=== PATIENT | female | born 1940 | race Caucasian/White ===

== ENCOUNTER 2021-03-08 14:44 | Observation (INO) | payer MEDICARE, OTHER, SELFPAY ==
[2021-03-08 14:53] VITALS: BP 144/75; PULSE 87; RESP 18; TEMP 36.6; O2SAT 98; BMI 29.2
[2021-03-08 15:03] LABS: Glucose Point of Care 88 mg/dL (70-110)
--- NOTE | 2021-03-08 15:09 | CT_ITS ---
WS: [id number] CT HEAD NONCONTRAST HISTORY: Symptoms of Acute Stroke TECHNIQUE: Contiguous axial imaging performed through the brain in 2.5 mm imaging. Bone and soft tiss ue windows. Sagittal and coronal reformats reviewed. All CT scans at [facility] use at least one of these dose optimization techniques: automated exposure control; mA and/or kV adjustment per pa tient size (includes targeted exams where dose is matched to clinical indication); or iterative recon struction. DLP: 817.88 mGy.cm COMPARISON: MRI 04/01/2019 No acute intracranial hemorrhage. Age indeterminate but at least subacute to remote infarct involving the LEFT frontal temporal lobe. This is a moderate size infarct with loss of the normal cortical med ullary junction. I favor this is probably a subacute infarct. Otherwise mild chronic microvascular is chemic disease. Cerebellum is negative. Mild bilateral atrophy. Ventricles: Normal size with no hydrocephalus. Paranasal sinuses: Small mucous retention cyst in the LEFT sphenoid sinus. Mastoid air cells: Well pneumatized. Calvarium and scalp: Skull is intact with no soft tissue edema or swelling. CT/CT head wo con* [id number] IMPRESSION: 1. Suspect subacute moderate size infarct involving the LEFT frontotemporal lo be. No associated hemorrhage. This infarct is new since the MRI of 04/01/2019. 2. Mild atrophy and mild chronic microvascular disease otherwise.
--- NOTE | 2021-03-08 15:09 | ECG_ITS ---
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 Measurements Intervals [place] Rate: 76 P: 34 NM: 140 QRS: 3 QRSD: 83 T: 6 QT: 375 QTc: 423 Interpretive Statements SINUS RHYTHM POSSIBLE LEFT ATRIAL ENLARGEMENT [-0.1mV P-WAVE IN V1/V2] No previous ECG available for comparison Electronically Signed On 03-08-2021 23:57:02 CDT by Violeta Patino M.D. [id number]
--- NOTE | 2021-03-08 15:18 | ED_ITS ---
HPI - General Adult General: Chief complaint: ER Hold Stated complaint: facial drooping, stroke like symptoms Time Seen by Provider: 03/08/21 15:04 History of Present Illness: HPI narrative: CC: +R foot dragging, word-finding difficulty, and R sided lower facial droop HPI: [80]yo patient w/ hx of recent UTI, atrophic vulvovaginitis prsenting to the ED for R sided foot drag, word finding difficulty and R sided lower facial droop since 3 days ago. Since then, symptoms have been persistent and have not improved. Denies any chest pain, SOB, palpitations, /GI complaints. Patient is not on any anticoagulation. Onset: 3 days ago Duration: 3 days Location: home Severity: severe Review of Systems Narrative: Constitutional: No fever, no chills. HEENT: No vision changes CV: No chest pain, no palpitations PULM: No cough, no dyspnea. GI: No abdominal pain, no N/V/D. : No dysuria MSKEL: No edema SKIN: No new rashes, no lesions. NEURO: +R lower facial droop, word finding difficulty HEME: No visible bruises PSYCH: Normal mood PFSH ED PFSH: Family History Mother Cancer colon cancer Hypertension Brother Cancer colon cancer Hypertension Sister Cancer colon cancer Hypertension Father Diabetes Hypertension Denies family history of Ovarian cyst CAD (coronary artery disease) Clotting disorder Hyperlipidemia Chronic kidney disease (CKD) Anesthesia complication Family history of thyroid problem Bleeding disorder Social History Smoking and tobacco status: never smoked Alcohol intake: never Physical Exam Narrative: EXAM NARRATIVE: Head: Atraumatic Eyes: PERRL, conjunctiva without injection ENT: Mucous membrane moist NECK: Supple without lymphadenopathy LUNGS: CTA CV: RRR ABDOMEN: Soft, nontender EXTREMITY: Normal ROM SKIN: No rash or erythema NEURO: NIHSS: 4 1. Level of Consciousness A) LOC Responsiveness 0 B) LOC Questions 0 C) LOC Commands 0 2. Horizontal Eye Movement 0 3. Visual field test 0 4. Facial Palsy 3 5. Motor Arm 0 6. Motor Leg 0 7. Limb Ataxia 0 9. Language 1 10. Speech 0 11. Extinction and Inattention 0 PSYCH: Normal mood and affect. Course Vital Signs: Vital signs: Vital Signs Temperature 97.8 F 03/08/21 14:53 Pulse Rate 78 03/08/21 22:25 Respiratory Rate 18 03/08/21 22:25 Blood Pressure 130/61 03/08/21 22:25 Pulse Oximetry 96 03/08/21 22:25 MDM - General Adult MDM Narrative: Medical decision making narrative: [80]yo patient w/ pMH of UTI and vulvovaginitis BIBA for concerns of transient focal neurological deficit including R lower facial droop, word finding difficulty and mild R foot droop. Presentation concerning for ischemic stroke requiring workup. NIHSS score of 4. Patient is outside of the TPA window. Given History and Exam I have lower suspicion for infectious etiology, neurologic changes secondary to toxicologic ingestion, seizure, complex migraine. Workup include: POC glucose, CBC, BMP, LFTs, Troponin, PT/INR, PTT, Type and Screen. Other Diagnostics: ECG, CT brain EKG without evidence of STEMI or ischemia, fingerstick BS not hypoglycemic, and clinical picture does not suggest other stroke mimic. Plan to workup for TIA Lab Findings and workup [3:29pm] will be admitted to hospital for evaluation of stroke work-up. Disposition: Admission to Neurology with MRI brain/MRA head/neck Lab Data: Labs: Lab Results 03/08/21 03/08/21 03/08/21 14:53 15:47 15:47 WBC 5.7 10^3/uL 10^3/ uL (4.0-10.0) RBC 4.00 10^6/uL L 10 ^6/uL (4.1-5.3) Hgb 11.5 g/dL g/dL (11.5-15.3) Hct 35.9 % L % (37.0-47.0) MCV 89.8 fl fl (81-99) MCH 28.8 pg pg (28.0-34.0) MCHC 32.0 g/dL g/dL (30.0-36.0) RDW 13.2 % % (12.1-15.1) Plt Count 241 10^3/cmm 10^3 /cmm (130-400) MPV 10.6 fL H fL (7.4-10.4) Neut % (Auto) 65.0 % % Lymph % (Auto) 26.0 % % [place] % (Auto) 7.5 % % Eos % (Auto) 0.3 % % Baso % (Auto) 0.5 % % Neut # (Auto) 3.72 10^3/uL 10^3 /uL (1.8-7.7) Lymph # (Auto) 1.5 10^3/uL 10^3/ uL (0.8-4.8) [place] # (Auto) 0.4 10^3/uL 10^3/ uL (0.2-0.9) Eos # (Auto) 0.0 10^3/uL 10^3/ uL (0.0-0.8) Baso # (Auto) 0.0 10^3/uL 10^3/ uL (0.0-0.1) Nucleated RBC % (a uto) 0 % % Nucleated RBCs # 0.0 /100WBC /100W BC PT 14.00 SECONDS SEC ONDS (12.1-14.9) INR 1.05 (0.8-1.2) APTT 39.5 SECONDS H SE CONDS (23.9-36.7) Sodium Potassium Chloride Carbon Dioxide Anion Gap BUN Creatinine GFR Calculation Glucose POC Glucose 88 mg/dL mg/dL (70-110) Calculated Osmolal ity Calcium Total Bilirubin AST ALT Alkaline Phosphata se Total Protein Albumin Globulin 03/08/21 15:47 WBC RBC Hgb Hct MCV MCH MCHC RDW Plt Count MPV Neut % (Auto) Lymph % (Auto) [place] % (Auto) Eos % (Auto) Baso % (Auto) Neut # (Auto) Lymph # (Auto) [place] # (Auto) Eos # (Auto) Baso # (Auto) Nucleated RBC % (a uto) Nucleated RBCs # PT INR APTT Sodium 138 mmol/L mmol/L (136-145) Potassium 4.2 mmol/L mmol/L (3.5-5.1) Chloride 101 mmol/L mmol/L (98-107) Carbon Dioxide 24 mmol/L mmol/L (22-29) Anion Gap 17.2 (5-19) BUN 26 mg/dL H mg/dL (8-23) Creatinine 0.7 mg/dL mg/dL (0.5-0.9) GFR Calculation Not Reportable Glucose 78 mg/dL mg/dL (65-115) POC Glucose Calculated Osmolal ity 290 mOsm/kg mOsm/ kg (285-295) Calcium 9.4 mg/dL mg/dL (8.5-10.5) Total Bilirubin 0.4 mg/dL mg/dL (0.15-1.2) AST 14 U/L U/L (0-32) ALT 9 U/L U/L (0-33) Alkaline Phosphata se 71 IU/L IU/L (35-105) Total Protein 7.1 g/dL g/dL (6.6-8.7) Albumin 4.3 g/dL g/dL (3.5-5.2) Globulin 2.8 g/dL g/dL (1.3-4.6) Imaging Data^: Other Imaging: Radiologist's impression: [employer] [place] [id number] Scan ReportSigned Patient: Ivet Tang IUnit #: [id number]: 3Acct#:[id number]/Sex: 80 / FADM Date: 03/08/21Loc: ERRoom/Bed:Attending Dr: Ordering Provider/Ordering MD: Bony Velez MD Date of Service: 03/08/21 Procedure(s): CT head wo con* [id number] Accession Number(s): [id number] Report Number: [id number] WS: [id number] CT HEAD NONCONTRAST HISTORY: Symptoms of Acute Stroke TECHNIQUE: Contiguous axial imaging performed through the brain in 2.5 mm imaging. Bone and soft tissue windows. Sagittal and coronal reformats reviewed. [facility] use at least one of these dose optimization techniques: automated exposure control; mA and/or kV adjustment per patient size (includes targeted exams where dose is matched to clinical indication); or iterative reconstruction. DLP: 817.88 mGy.cm COMPARISON: MRI 04/01/2019 No acute intracranial hemorrhage. Age indeterminate but at least subacute to remote infarct involving the LEFT frontal temporal lobe. This is a moderate size infarct with loss of the normal cortical medullary junction. I favor this is probably a subacute infarct. Otherwise mild chronic microvascular ischemic disease. Cerebellum is negative. Mild bilateral atrophy. Ventricles: Normal size with no hydrocephalus. Paranasal sinuses: Small mucous retention cyst in the LEFT sphenoid sinus. Mastoid air cells: Well pneumatized. Calvarium and scalp: Skull is intact with no soft tissue edema or swelling. CT/CT head wo con* [id number] IMPRESSION: 1. Suspect subacute moderate size infarct involving the LEFT frontotemporal lobe. No associated hemorrhage. This infarct is new since the MRI of 04/01/2019. 2. Mild atrophy and mild chronic microvascular disease otherwise. Dictated By:Angeline Posada DOSigned By:Angeline Posada DOSigned Date/Time:03/08/21 1536DD/ 1531 Discharge Plan Discharge Patient Disposition: Admitted As Inpatient Admit Provider: Jake Liu Clinical Impression: Facial droop Condition: Stable Coding Level of Care Code ED C Programmer for Ana Maria Russell
[2021-03-08 15:57] LABS: Basophils % 0.5 %; Eosinophils % 0.3 %; Hematocrit 35.9 % (37.0-47.0); Hemoglobin 11.5 g/dL (11.5-15.3); Lymphocytes # 1.5 10^3/uL (0.8-4.8); Mean Corpuscular Hemoglobin 28.8 pg (28.0-34.0); Mean Corpuscular Volume 89.8 fl (81-99); Mean Platelet Volume 10.6 fL (7.4-10.4); Monocytes # 0.4 10^3/uL (0.2-0.9); Monocytes % 7.5 %; Neutrophils # 3.72 10^3/uL (1.8-7.7); Nucleated Red Blood Cells % 0 %; Platelet Count 241 10^3/cmm (130-400); Red Cell Distribution Width 13.2 % (12.1-15.1); White Blood Count 5.7 10^3/uL (4.0-10.0)
[2021-03-08 16:14] LABS: Alanine Aminotransferase 9 U/L (0-33); Albumin Level 4.3 g/dL (3.5-5.2); Alkaline Phosphatase 71 IU/L (35-105); Anion Gap 17.2 (5-19); Aspartate Amino Transferase 14 U/L (0-32); Blood Urea Nitrogen 26 mg/dL (8-23); Calcium 9.4 mg/dL (8.5-10.5); Carbon Dioxide 24 mmol/L (22-29); Chloride 101 mmol/L (98-107); Creatinine Clr Calc Pharmacy 54.0632; Globulin 2.8 g/dL (1.3-4.6); Glucose 78 mg/dL (65-115); Osmolality Calculated 290 mOsm/kg (285-295); Potassium 4.2 mmol/L (3.5-5.1); Sodium 138 mmol/L (136-145); Total Bilirubin 0.4 mg/dL (0.15-1.2); Total Protein 7.1 g/dL (6.6-8.7)
[2021-03-08 16:20] LABS: INR 1.05 (0.8-1.2)
[2021-03-08 16:22] LABS: Partial Thromboplastin Time 39.5 SECONDS (23.9-36.7)
[2021-03-08 17:14] LABS: Urine Appearance Hazy (CLEAR); Urine Color Yellow (Yellow)
[2021-03-08 17:15] LABS: Add Urine Microscopic? YES; Bilirubin Urine Neg (Negative); Blood Urine 2+ (Negative); Glucose Urine UA Norm (Normal); Ketones Urine 1+ (Negative); Leukocyte Esterase Urine 2+ (Negative); Nitrate Urine Negative (Negative); Protein Urine Neg (Negative); RBC Urine 0-4 /hpf (0-2); Specific Gravity, Urine 1.015 (1.005-1.030); Transitional Epi Cells Urine 0-4 /hpf; Urobilinogen Urine Norm (Negative); WBC Urine 25-40 /hpf (0-5); pH Urine 5 (5-7)
--- NOTE | 2021-03-08 17:15 | P.HP_ITS ---
Providers/Chief Complaint Primary Care Provider: Tiki Mcdermott Chief Complaint: facial drooping, stroke like symptoms History of Present Illness Ivet Walker Layman is a 80 year old female with past medical history of hypertension , hypothyroidism , anxiety disorder, came in with chief complaint of, R foot dragging, as well as right-sided facial weakness, difficulty with word finding, symptoms started 3 days back.When I examined the patient, she denied any Worsening of symptoms, according to her she feels fine. Upon arrival in the ER. She was worked up for above-mentioned complaint. CT head without contrast:Suspect subacute moderate size infarct involving the LEFT frontotemporal lobe. EKG: Normal sinus rhythm Pertinent labs: WBC 5.7 H&H 11.5/35.9, platelet count:241, serum sodium 138 serum potassium 4.2 BUN 26 serum creatinine 0.7, AST ALT alk phos normal, Urinalysis dirty Review of Systems Const: Denies: fever(s), chills, body aches, change in appetite or diaphoresis Card: Denies: palpitations, edema, swelling of feet/ankles, dyspnea on exertion, orthopnea or leg pain with exertion Resp: Denies: dyspnea, productive cough, wheezing or pain on inspiration GI: Denies: nausea, vomiting, diarrhea or constipation : Denies: flank pain Musc: Denies: extremity pain or extremity swelling Neuro: Denies: headache(s) or confusion Medications/Allergies Home Medications Medication Instructions Recorded Confirmed Last Taken Type levothyroxine 50 mcg capsule 50 mcg PO DAILY 07/25/20 03/08/21 03/08/21 History lisinopril 10 mg tablet 10 mg PO DAILY 07/25/20 03/08/21 03/08/21 History omeprazole 40 mg capsule,delayed 40 mg PO DAILY 07/25/20 03/08/21 03/08/21 History release Estrace 0.25 g VAGINAL Q7D 03/08/21 03/08/21 Unknown History alprazolam 1 - 2 mg PO TID PRN 03/08/21 03/08/21 03/08/21 History Allergies Allergy/AdvReac Type Severity Reaction Status Date / Time Antihistamines - Alkylamine Allergy amps her up Verified 07/25/20 14:05 PFSH Acute PFSH: Family History Mother Cancer colon cancer Hypertension Brother Cancer colon cancer Hypertension Sister Cancer colon cancer Hypertension Father Diabetes Hypertension Denies family history of Ovarian cyst CAD (coronary artery disease) Clotting disorder Hyperlipidemia Chronic kidney disease (CKD) Anesthesia complication Family history of thyroid problem Bleeding disorder Social History Smoking and tobacco status: never smoked Alcohol intake: never Vitals/I&O/Wt Last Vital Signs Temp 97.8 F 03/08/21 14:53 Pulse 87 03/08/21 14:53 Resp 18 03/08/21 14:53 BP 144/75 03/08/21 14:53 Pulse Ox 98 03/08/21 14:53 Weight last 48 hrs Weight 72.575 kg Physical Exam Const: COMMON NORMALS: patient oriented x3 HENMT: COMMON NORMALS: normocephalic and atraumatic HEAD & SCALP: normocephalic and atraumatic EXTERNAL EAR: Yes external ears normal Resp: COMMON NORMALS: clear to auscultation bilaterally AUSCULTATION: clear to auscultation bilaterally Cardio: COMMON NORMALS: regular rate, regular rhythm, S1 normal heart sound present, S2 normal heart sound present, No gallops present (Cardio), No murmurs present (Cardio), No rub (Cardio) and Peripheral pulses 2+ throughout RATE: regular rate RHYTHM: regular rhythm HEART SOUNDS: S1 normal heart sound pr esent and S2 normal heart sound present PERIPHERAL PULSES: Peripheral pulses 2+ throughout GI: COMMON NORMALS: Normal to inspection, nondistended, normoactive bowel sounds present, Soft to palpation, non-tender, No hepatosplenomegaly present and no masses AUSCULTATION: Yes normoactive bowel sounds PALPATION: Yes Soft to palpation and Yes No hepatosplenomegaly present RECTAL EXAM: deferred Extremity: COMMON NORMALS: no clubbing, cyanosis or edema and no pedal edema Neuro: COMMON NORMALS: patient oriented x3 OTHER: Right-sided facial droop present, motor strength: 5 out of 5 in both upper and lower extremity, sensation intact Data : 03/08/21 15:47 03/08/21 15:47 A&P Assessment and plan (1) CVA (cerebral vascular accident): Subacute CVA: 2D echo: Carotid Doppler: Telemetry monitoring Aspirin 81 mg p.o. daily Lipitor 40 mg p.o. daily PT OT evaluation Status: Acute (2) UTI (urinary tract infection): Follow urine culture Ceftriaxone 1 g IV daily Status: Acute (3) Hypothyroidism: Levothyroxine 50 mcg p.o. daily Status: Acute (4) Hypertension: Lisinopril 10 mg p.o. daily Status: Acute Additional A&P Information CODE STATUS: Full code DVT prophylaxis: Lovenox 40 subcu daily Attestations Medical Necessity Statement*: Patient needs to be in hospital for management of subacute CVA. Coding Level of Care Code Acute Stand Up Comedian for Chg Fwd Diagnoses CVA (cerebral vascular accident) I63.9 UTI (urinary tract infection) N39.0 Hypothyroidism E03.9 Hypertension I10
[2021-03-08 17:16] LABS: Add Urine Culture? Yes; Bacteria Urine 1+ /hpf; Mucus Urine 2+ /hpf
[2021-03-08] MEDS: enoxaparin 40 mg/0.4 mL Syringe SUBCUT (18:10)
[2021-03-08 18:15] VITALS: BP 120/62; O2SAT 94
[2021-03-08] MEDS: cefTRIAXone 1,000 MG in sodium chloride 0.9% (plus) 50 ML 100 MG IV (19:49)
[2021-03-08 21:19] VITALS: BP 110/56; PULSE 75; RESP 18; O2SAT 94
[2021-03-08 22:25] VITALS: BP 130/61; PULSE 78; RESP 18; O2SAT 96
[2021-03-09] VITALS (7 sets, daily range): BP systolic 110–152; BP diastolic 58–70; PULSE 61–95; RESP 16; O2SAT 94–96
[2021-03-09 04:26] LABS: Basophils % 0.6 %; Eosinophils # 0.1 10^3/uL (0.0-0.8); Hematocrit 32.4 % (37.0-47.0); Hemoglobin 10.2 g/dL (11.5-15.3); Lymphocytes # 1.6 10^3/uL (0.8-4.8); Lymphocytes % 33.1 %; Mean Corpuscular HGB Conc 31.5 g/dL (30.0-36.0); Mean Corpuscular Hemoglobin 28.4 pg (28.0-34.0); Mean Corpuscular Volume 90.3 fl (81-99); Mean Platelet Volume 10.9 fL (7.4-10.4); Monocytes # 0.5 10^3/uL (0.2-0.9); Monocytes % 9.3 %; Neutrophils # 2.75 10^3/uL (1.8-7.7); Neutrophils % 55.8 %; Nucleated Red Blood Cells % 0 %; Platelet Count 226 10^3/cmm (130-400); Red Blood Count 3.59 10^6/uL (4.1-5.3); Red Cell Distribution Width 13.4 % (12.1-15.1); White Blood Count 4.9 10^3/uL (4.0-10.0)
[2021-03-09 04:41] LABS: Alanine Aminotransferase 9 U/L (0-33); Albumin Level 3.9 g/dL (3.5-5.2); Alkaline Phosphatase 66 IU/L (35-105); Anion Gap 17.2 (5-19); Aspartate Amino Transferase 15 U/L (0-32); Blood Urea Nitrogen 26 mg/dL (8-23); Calcium 8.8 mg/dL (8.5-10.5); Carbon Dioxide 23 mmol/L (22-29); Chloride 103 mmol/L (98-107); Creatinine Clr Calc Pharmacy 54.0632; Globulin 2.7 g/dL (1.3-4.6); Glucose 82 mg/dL (65-115); Osmolality Calculated 292 mOsm/kg (285-295); Potassium 4.2 mmol/L (3.5-5.1); Sodium 139 mmol/L (136-145); Total Bilirubin 0.4 mg/dL (0.15-1.2); Total Protein 6.6 g/dL (6.6-8.7)
[2021-03-09 05:19] LABS: INR 1.08 (0.8-1.2)
[2021-03-09 05:20] LABS: Partial Thromboplastin Time 43.2 SECONDS (23.9-36.7)
--- NOTE | 2021-03-09 05:26 | PC.NURSE ---
pt had crackers and water on bedside table. this nurse asked pt not to consume anything b mouth until cleared by swallow test.
--- NOTE | 2021-03-09 06:00 | USCV_ITS ---
Ivet Tang Age: 80 Gender: F : 1940 Exam Date: 03/09/2021 10:12 Ordering Phys: Jake Liu MD Technologist: Carrie Noe [place] [facility] [place]: STROKE BP: 134 / 64 HR: 87 Rhythm: Sinus Technical Quality: Adequate MEASUREMENTS (Male / Female) Normal Values 2D ECHO LV Diastolic Diameter PLAX 4.3 cm 4.2 - 5.9 / 3.9 - 5.3 cm LV Systolic Diameter PLAX 2.0 cm IVS Diastolic Thickness 1.5 cm 0.6 - 1.0 / 0.6 - 0.9 cm IVS Systolic Thickness 2.4 cm LVPW Diastolic Thickness 1.5 cm 0.6 - 1.0 / 0.6 - 0.9 cm LVPW Systolic Thickness 2.5 cm LVOT Diameter 2.0 cm LV Ejection Fraction 2D Teich 84.1 % LV Ejection Fraction MOD 2C 58.7 % LV Ejection Fraction 2C AL 56.7 % LA Diameter 3.6 cm LA Width 2.1 cm LA Height 3.9 cm RA Width 2.0 cm RA Height 5.0 cm Aorta at Sinotubular Diameter 2.0 cm M-MODE Aortic Annulus Diameter 2.6 cm LA Ao Ratio MM 1.0 DOPPLER AV Peak Velocity 178.0 cm/s LVOT Peak Velocity 174.7 cm/s AV Area Cont Eq vti 3.2 cm squared AV Area Cont Eq pk 3.1 cm squared MV Peak Velocity 137.0 cm/s MV Area PHT 2.4 cm squared Mitral E to A Ratio 0.6 MV E' Velocity 44.0 cm/s Mitral E to MV E' Ratio 9.6 Mitral E to LV E' Lateral Ratio 10.2 Mitral E to LV E' Septal Ratio 9.0 TR Peak Velocity 169.6 cm/s TR Peak Gradient 11.5 mmHg TR Mean Velocity 128.4 cm/s TR Mean Gradient 7.2 mmHg TR Velocity Time Integral 38.5 cm TV Peak E Velocity 57.0 cm/s Right Atrial Pressure 3.0 mmHg Pulmonary Artery Systolic Pressu 14.5 mmHg PV Peak Velocity 97.0 cm/s RV Acceleration Time 0.1 s RV Ejection Time 0.3 s RV AcT/ET 0.4 FINDINGS Left Ventricle Normal left ventricular cavity size. Hyperdynamic left ventricle function, estimated ejection fraction around 70%.no regional wall motion abnormalities. Grade I/IV diastolic dysfunction (abnormal relaxation filling pattern), normal to mildly elevated filling pressures. Right Ventricle The right ventricle is normal in size and function. Right Atrium The right atrium is normal in size. Left Atrium The left atrium is normal in size. Mitral Valve Structurally normal mitral valve without significant stenosis or prolapse. There is no mitral regurgitation. Aortic Valve Moderate aortic valve calcification. No aortic valve stenosis. Acceleration of flow in the LVOT noted. Tricuspid Valve Structurally normal tricuspid valve without significant stenosis or regurgitation. Pulmonary artery systolic pressure is normal. Pulmonic Valve Structurally normal pulmonic valve without significant stenosis. There is no pulmonic regurgitation. Pericardium Normal pericardium without effusion. Aorta Normal ascending aorta dimension. CONCLUSIONS 1-Normal left ventricular cavity size. Hyperdynamic left ventricle function, estimated ejection fraction around 70%.no regional wall motion abnormalities. Grade I/IV diastolic dysfunction (abnormal relaxation filling pattern), normal to mildly elevated filling pressures. 2-There is no pericardial effusion. 3-No significant valve abnormalities. 4-Pulmonary artery systolic pressure is within normal limits. 5-Right atrial pressure is around 5 mm of mercury. 6-There are no prior echocardiogram studies to compare. Norman Weaver MD (Electronically Signed) Final Date: 09 March 2021 13:48 S
--- NOTE | 2021-03-09 06:00 | USCV_ITS ---
Ivet Tang Age: 80 Gender: F : 1940 Exam Date: 03/09/2021 09:54 Ordering Phys: Jake Liu MD Technologist: Carrie Noe [place]am [place] [facility] [place]ication: STROKE Risk Factors: Previous Vascular Surgery: Right Brachial BP: / Left Brachial BP: / Right Left Velocity (cm/s) Spectral Plaque Velocity (cm/s) Spectral Plaque Syst/Diast Broadening Syst/Diast Broadening 110.30/14.30 Prox CCA 126.20/ 13.90 87.50/ 15.40 Mid CCA 113.60/ 17.60 101.70/22.50 Distal CCA 98.00 / 15.60 79.50/ 15.40 Prox ICA 91.50 / 18.70 73.40/ 21.80 Mid ICA 93.70 / 24.30 83.20/ 27.40 Distal ICA 86.00 / 20.90 147.60 ECA 122.30 0.75 ICA/CCA 0.74 Antegrade Vertebral Antegrade 55.50/ 14.50 cm/s 59.00/ 13.70 cm/s Tri Subclavian Tri 226.5 192.5 0 0 FINDINGS Comparison: none available. No significant elevation of systolic or diastolic velocities. Waveforms are normal. Irregular calcified plaque in the bifurcations. Antegrade vertebral arteries. CONCLUSIONS Bilateral ICA stenosis less than 50%. Carotid atherosclerosis at the bifurcations. Dr. Angeline Posada DO (Electronically Signed) Final Date: 09 March 2021 11:00 S
--- NOTE | 2021-03-09 07:50 | PC.NURSE ---
After taking report I found post-stroke pt has not had a swallow study. Pt has diet order and several PO medications. Per Dr. Liu, pt is okay to eat and receive PO medications.
[2021-03-09] MEDS: aspirin 81 mg Chew Tablet PO (08:16)
[2021-03-09] MEDS: atorvastatin 40 mg Tablet PO (08:17)
[2021-03-09] MEDS: lisinopril 10 mg Tablet PO (08:17)
[2021-03-09] MEDS: pantoprazole DR 40 mg Tablet PO (08:17)
[2021-03-09] MEDS: levothyroxine 50 mcg Tablet PO (09:54)
--- NOTE | 2021-03-09 14:33 | P.DS_ITS ---
Discharge Providers Date of Admission: 03/08/21 16:08 Date of Discharge: March 09, 2021 Attending Provider at Admission: Jake Liu MD Attending Provider at Discharge: Jake Liu MD Primary Care Provider: Tiki Mcdermott Diagnoses at Discharge Discharge Diagnosis (1) CVA (cerebral vascular accident): Status: Resolved (2) UTI (urinary tract infection): Status: Acute (3) Hypothyroidism: Status: Acute (4) Hypertension: Status: Acute Reason for Visit Reason for Visit: facial drooping, stroke like symptoms Hospital Course Hospital Course Ivet Tang is a 80 year old female with past medical history of hypertension , hypothyroidism , anxiety disorder, came in with chief complaint of, R foot dragging, as well as right-sided facial weakness, difficulty with word finding, symptoms started 3 days back.When I examined the patient, she denied any Worsening of symptoms, according to her she feels fine. Upon arrival in the ER. She was worked up for above-mentioned complaint. CT head without contrast:Suspect subacute moderate size infarct involving the LEFT frontotemporal lobe. EKG: Normal sinus rhythm.Pertinent labs: WBC 5.7 H&H 11.5/35.9, platelet count:241, serum sodium 138 serum potassium 4.2 BUN 26 serum creatinine 0.7, AST ALT alk phos normal, Urinalysis dirty. She was admitted for the management of subacute CVA. She was kept on aspirin statin, neurochecks, monitoring specialist, PT evaluation was done.Denied any difficulty with swallowing, was able to tolerate diet well. 2D echo: Normal LV cavity size, hyperdynamic LV function, LVEF 70%, no RWMA , Grade I/IV diastolic dysfunction (abnormal relaxation filling pattern), normal to mildly elevated filling pressures.There is no pericardial effusion.No significant valve abnormalities. Pulmonary artery systolic pressure is within normal limits. Right atrial pressure is around 5 mm of mercury. Bilateral carotid Doppler:Bilateral ICA stenosis less than 50%. At the time of discharge she was requiring a walker, and was provided with home physical therapy regimen instructions, patient refused to go for outpatient physical therapy. Telemetry review has not shown any significant arrhythmia. She was discharged on 2 weeks event monitor. For UTI: She was kept on ceftriaxone while inpatient and is being discharged on levofloxacin 500 mg po for additional 5 days.Hypothyroidism: Levothyroxine 50 mcg p.o. daily.for hypertension: She was continued on Lisinopril 10 mg p.o. daily. She responded well to the above medical management and is being discharged in stable condition to home.Patient will continue to follow with her primary care physician as an outpatient. Physical Exam Const: COMMON NORMALS: patient oriented x3 HENMT: COMMON NORMALS: normocephalic, atraumatic and external ears normal HEAD & SCALP: normocephalic and atraumatic EXTERNAL EAR: Yes external ears normal Resp: COMMON NORMALS: clear to auscultation bilaterally AUSCULTATION: clear to auscultation bilaterally Cardio: COMMON NORMALS: regular rate, regular rhythm, S1 normal heart sound present, S2 normal heart sound present, No gallops present (Cardio), No murmurs present (Cardio), No rub (Cardio) and Peripheral pulses 2+ throughout RATE: regular rate RHYTHM: regular rhythm HEART SOUNDS: S1 normal heart sound present and S2 normal heart sound present PERIPHERAL PULSES: Peripheral pulses 2+ throughout GI: COMMON NORMALS: Normal to inspection, nondistended, normoactive bowel sounds present, Soft to palpation, non-tender, No hepatosplenomegaly present and no masses AUSCULTATION: Yes normoactive bowel sounds PALPATION: Yes Soft to palpation and Yes No hepatosplenomegaly present RECTAL EXAM: deferred Extremity: COMMON NORMALS: no clubbing, cyanosis or edema and no pedal edema Neuro: COMMON NORMALS: patient oriented x3 OTHER: motor strength: 5 out of 5 in both upper and lower extremity, sensation intact. Discharge Data Data Completed and Pending: Completed Studies During Hospitalization Category Date Time Status CT head wo con* [id number] Stat Cat Scan 03/08/21 15:09 Completed CV carotid duplex BI* [id number] Routine Ultrasound 03/09/21 06:00 Completed CV. echo complete * [id number] Routine Ultrasound 03/09/21 06:00 Completed Pending at discharge Category Date Time Status Basic Metabolic P ofelia AM LABS Lab 03/10/21 04:00 Ordered Basic Metabolic P ofelia AM LABS Lab 03/11/21 04:00 Ordered Complete Blood Co unt w/Auto AM LABS Lab 03/10/21 04:00 Ordered Complete Blood Co unt w/Auto AM LABS Lab 03/11/21 04:00 Ordered Urine Culture Sta t Lab 03/08/21 16:29 Results Labs from last 24 hours 03/09/21 03/09/21 03/09/21 04:03 04:03 04:03 WBC 4.9 RBC 3.59 L Hgb 10.2 L Hct 32.4 L MCV 90.3 MCH 28.4 MCHC 31.5 RDW 13.4 Plt Count 226 MPV 10.9 H Neut % (Auto) 55.8 Lymph % (Auto) 33.1 [place] % (Auto) 9.3 Eos % (Auto) 1.0 Baso % (Auto) 0.6 Neut # (Auto) 2.75 Lymph # (Auto) 1.6 [place] # (Auto) 0.5 Eos # (Auto) 0.1 Baso # (Auto) 0.0 Nucleated RBC % (a uto) 0 Nucleated RBCs # 0.0 PT 14.30 INR 1.08 APTT 43.2 H Sodium 139 Potassium 4.2 Chloride 103 Carbon Dioxide 23 Anion Gap 17.2 BUN 26 H Creatinine 0.7 GFR Calculation Not Reportable Glucose 82 POC Glucose Calculated Osmolal ity 292 Calcium 8.8 Total Bilirubin 0.4 AST 15 ALT 9 Alkaline Phosphata se 66 Total Protein 6.6 Albumin 3.9 Globulin 2.7 Urine Color Urine Appearance Urine pH Ur Specific Gravit y Urine Protein Urine Glucose (UA) Urine Ketones Urine Blood Urine Nitrate Urine Bilirubin Urine Urobilinogen Ur Leukocyte Ijeoma ase Urine RBC Urine WBC Ur Squamous Epith Cells Ur Transition Epit h Cell Amorphous Sediment Urine Bacteria Urine Mucus 03/08/21 03/08/21 03/08/21 16:29 15:47 15:47 WBC RBC Hgb Hct MCV MCH MCHC RDW Plt Count MPV Neut % (Auto) Lymph % (Auto) [place] % (Auto) Eos % (Auto) Baso % (Auto) Neut # (Auto) Lymph # (Auto) [place] # (Auto) Eos # (Auto) Baso # (Auto) Nucleated RBC % (a uto) Nucleated RBCs # PT 14.00 INR 1.05 APTT 39.5 H Sodium 138 Potassium 4.2 Chloride 101 Carbon Dioxide 24 Anion Gap 17.2 BUN 26 H Creatinine 0.7 GFR Calculation Not Reportable Glucose 78 POC Glucose Calculated Osmolal ity 290 Calcium 9.4 Total Bilirubin 0.4 AST 14 ALT 9 Alkaline Phosphata se 71 Total Protein 7.1 Albumin 4.3 Globulin 2.8 Urine Color Yellow Urine Appearance Hazy A Urine pH 5 Ur Specific Gravit y 1.015 Urine Protein Neg Urine Glucose (UA) Norm Urine Ketones 1+ H Urine Blood 2+ H Urine Nitrate Negative Urine Bilirubin Neg Urine Urobilinogen Norm Ur Leukocyte Ijeoma ase 2+ H Urine RBC 0-4 H Urine WBC 25-40 H Ur Squamous Epith Cells 5-10 H Ur Transition Epit h Cell 0-4 Amorphous Sediment Not Reportable Urine Bacteria 1+ H Urine Mucus 2+ 03/08/21 03/08/21 15:47 14:53 WBC 5.7 RBC 4.00 L Hgb 11.5 Hct 35.9 L MCV 89.8 MCH 28.8 MCHC 32.0 RDW 13.2 Plt Count 241 MPV 10.6 H Neut % (Auto) 65.0 Lymph % (Auto) 26.0 [place] % (Auto) 7.5 Eos % (Auto) 0.3 Baso % (Auto) 0.5 Neut # (Auto) 3.72 Lymph # (Auto) 1.5 [place] # (Auto) 0.4 Eos # (Auto) 0.0 Baso # (Auto) 0.0 Nucleated RBC % (a uto) 0 Nucleated RBCs # 0.0 PT INR APTT Sodium Potassium Chloride Carbon Dioxide Anion Gap BUN Creatinine GFR Calculation Glucose POC Glucose 88 Calculated Osmolal ity Calcium Total Bilirubin AST ALT Alkaline Phosphata se Total Protein Albumin Globulin Urine Color Urine Appearance Urine pH Ur Specific Gravit y Urine Protein Urine Glucose (UA) Urine Ketones Urine Blood Urine Nitrate Urine Bilirubin Urine Urobilinogen Ur Leukocyte Ijeoma ase Urine RBC Urine WBC Ur Squamous Epith Cells Ur Transition Epit h Cell Amorphous Sediment Urine Bacteria Urine Mucus Vitals: Last Vital Signs Temp 97.8 F 03/08/21 14:53 Pulse 84 03/09/21 12:08 Resp 16 03/09/21 12:08 BP 110/69 03/09/21 12:08 Pulse Ox 94 03/09/21 12:08 Discharge Plan Discharge Patient Disposition: Home Condition: Stable Prescriptions: New atorvastatin 40 mg Tablet 40 mg PO DAILY 30 Days Qty: 30 RF: 3 Children's Aspirin 81 mg Tablet,Chewable 81 mg PO DAILY 30 Days Qty: 30 RF: 3 levofloxacin 500 mg tablet 500 mg PO DAILY 5 Days Qty: 5 RF: 0 Continued levothyroxine 50 mcg capsule 50 mcg PO DAILY RF: 0 lisinopril 10 mg tablet 10 mg PO DAILY RF: 0 omeprazole 40 mg capsule,delayed release(DR/EC) 40 mg PO DAILY RF: 0 alprazolam 2 mg tablet 1 - 2 mg PO TID PRN (Reason: Anxiety) RF: 0 Estrace 0.01 % (0.1 mg/gram) cream 0.25 g vaginal Q7D RF: 0 Discharge Orders: Discharge Order (Routine); Ordered 03/09/21 Ordered By: Jake Liu Other Ambulatory Orders: [place] cardiac event monitor (Routine) Timeframe: 2 Weeks Facility: [facility] - Location: [facility] Ordered By: Jake Liu Referrals: Tiki Mcdermott [Primary Care Provider] - Mary Downey DO [Referring] - 2 weeks (Dr Downey's office will call you with an appointment. ) Discharge Diet: Regular Discharge Activity: Increase activity as tolerated Patient Instructions: Opioid Safety Discharge Attestations Time Spent in Discharge Care*: greater than 30 min Specific Discharge Activities: educating patient, educating and/or supporting family/caregiver, discussing with pcp/other providers, discussing with case management manager/social workers/dc planners, documenting/other paperwork and evaluating patient/reviewing data Status at Discharge: Cognitive status at discharge: cognitively intact , Behavioral status at discharge: cooperative , Functional status at discharge: other assisted ambulation Overall status at discharge: patient is progressing back to baseline Quality Metrics Clinical Quality Measures During this hospital stay, did patient experience: None Coding Level of Care Code Acute Chg FW DC note Diagnoses CVA (cerebral vascular accident) I63.9 UTI (urinary tract infection) N39.0 Hypothyroidism E03.9 Hypertension I10
--- NOTE | 2021-03-12 17:40 | PC.SOCIAL ---
NO qualifying dx for the outpatient event monitor. Pt pcp was notified and Dr Liu ordering physician was notified. Dr Liu will try and reach out to [facility] to discuss why patient dx wont qualify which is CVA. Patient is aware that currently this is unable to be approved under current jada for insurance to cover. Marla DALY CM has notified her.
== END 2021-03-09 16:53 | disposition home or self-care (01) ==
LOC: ER 15:19 → ER IP 22:11
PROVIDERS: Admitting Provider Internal Medicine; Emergency Provider Emergency Medicine; PCP Registered Nurse; Visit Provider Internal Medicine
DX: I63.9 Cerebral infarction, unspecified (principal); N39.0 Urinary tract infection, site not specified; R29.702 NIHSS score 2; R29.810 Facial weakness; I10 Essential (primary) hypertension; F41.9 Anxiety disorder, unspecified; E03.9 Hypothyroidism, unspecified
CPT/HCPCS: 36416; 70450; 80053; 81001; 82962; 85025; 85610; 85730; 87077; 87086; 87186; 93005; 93306; 93880; 96365; 96372; 97110; 97116; 97161; 99285; G0378; J0696; J1650

== ENCOUNTER 2021-05-07 13:29 | Outpatient (CLI) | payer MEDICARE, OTHER, SELFPAY ==
[2021-05-07 14:09] LABS: Specific Gravity, Urine 1.005 (1.005-1.030); Urine Appearance Cloudy (CLEAR); Urine Color Straw (Yellow); pH Urine 6 (5-7)
[2021-05-07 14:10] LABS: Add Urine Microscopic? YES; Bacteria Urine 1+ /hpf; Bilirubin Urine Neg (Negative); Blood Urine 2+ (Negative); Glucose Urine UA Norm (Normal); Ketones Urine Negative (Negative); Leukocyte Esterase Urine 2+ (Negative); Nitrate Urine Negative (Negative); Protein Urine Neg (Negative); RBC Urine 0-4 /hpf (0-2); Squamous Epithelial Cell Urine 15-25 /hpf (0-5); Urobilinogen Urine Norm (Negative); WBC Urine 55-80 /hpf (0-5)
== END 2021-05-07 13:30 | disposition home or self-care (01) ==
LOC: LAB 13:32
PROVIDERS: PCP Family Medicine; Visit Provider Family Medicine
DX: N39.0 Urinary tract infection, site not specified (principal)
CPT/HCPCS: 81001

== ENCOUNTER 2021-08-21 18:30 | Outpatient (CLI) | payer MEDICARE, OTHER, SELFPAY ==
[2021-08-22 10:12] LABS: Blood Urine 2+ (Negative); Glucose Urine UA Norm (Normal); Ketones Urine Negative (Negative); Nitrate Urine Positive (Negative); Protein Urine Neg (Negative); Specific Gravity, Urine 1.015 (1.005-1.030); Urine Appearance Cloudy (CLEAR); Urine Color Yellow (Yellow); pH Urine 7 (5-7)
[2021-08-22 10:13] LABS: Bilirubin Urine Neg (Negative); Leukocyte Esterase Urine 2+ (Negative); Urobilinogen Urine Norm (Negative)
[2021-08-22 10:14] LABS: Add Urine Microscopic? YES
[2021-08-22 11:07] LABS: RBC Urine 0-4 /hpf (0-2); Transitional Epi Cells Urine 0-4 /hpf
[2021-08-22 11:08] LABS: Mucus Urine 1+ /hpf; Renal Epithelial Cells Urine 0 /hpf
[2021-08-22 11:18] LABS: Bacteria Urine 4+ /hpf
[2021-08-22 11:20] LABS: Add Urine Culture? No; Calcium Oxalate Crystals Urine RARE /hpf
== END 2021-08-21 18:31 | disposition home or self-care (01) ==
LOC: LAB 18:34
PROVIDERS: Obstetrics & Gynecology; PCP Family Medicine; Visit Provider Family Medicine
DX: Z87.440 Personal history of urinary (tract) infections (principal)
CPT/HCPCS: 81001; 87077; 87086; 87186

== ENCOUNTER 2021-09-25 14:15 | Outpatient (CLI) | payer MEDICARE, OTHER, SELFPAY ==
[2021-09-25 14:49] LABS: Blood Urine 2+ (Negative); Glucose Urine UA Norm (Normal); Ketones Urine Negative (Negative); Nitrate Urine Positive (Negative); Protein Urine Neg (Negative); Urine Appearance Cloudy (CLEAR); Urine Color Yellow (Yellow); pH Urine 9 (5-7)
[2021-09-25 14:50] LABS: Bilirubin Urine Neg (Negative); Leukocyte Esterase Urine 2+ (Negative); Mucus Urine TRACE /hpf; RBC Urine 0-4 /hpf (0-2); Squamous Epithelial Cell Urine 0-4 /hpf (0-5); Sulfosalicylic Acid Urine Negative (Negative); Urobilinogen Urine Norm (Negative)
[2021-09-25 14:51] LABS: Add Urine Culture? Yes; Amorphous Sediment Urine 4+ /hpf
== END 2021-09-25 14:16 | disposition home or self-care (01) ==
LOC: LAB 14:18
PROVIDERS: PCP Family Medicine; Visit Provider Family Medicine
DX: R30.9 Painful micturition, unspecified (principal)
CPT/HCPCS: 81001; 87077; 87086; 87186

== ENCOUNTER 2021-10-20 11:52 | Outpatient (CLI) | payer MEDICARE, OTHER, SELFPAY ==
[2021-10-20 14:00] LABS: Add Urine Microscopic? YES; Bilirubin Urine Neg (Negative); Blood Urine Trace (Negative); Glucose Urine UA Norm (Normal); Ketones Urine Negative (Negative); Leukocyte Esterase Urine 2+ (Negative); Nitrate Urine Positive (Negative); Protein Urine Neg (Negative); Sulfosalicylic Acid Urine Negative (Negative); Urine Appearance SL Hazy (CLEAR); Urine Color Yellow (Yellow); Urobilinogen Urine Norm (Negative); pH Urine 8 (5-7)
[2021-10-20 14:02] LABS: RBC Urine 0-4 /hpf (0-2); WBC Urine 40-55 /hpf (0-5)
[2021-10-20 14:03] LABS: Add Urine Culture? No; Bacteria Urine 2+ /hpf
== END 2021-10-20 11:53 | disposition home or self-care (01) ==
PROVIDERS: PCP Family Medicine; Visit Provider Family Medicine
DX: Z87.440 Personal history of urinary (tract) infections (principal)
CPT/HCPCS: 81001; 87077; 87086; 87186

== ENCOUNTER → 2022-03-11 09:46 | Outpatient (BNVA) | payer MEDICARE, OTHER, SELFPAY | PROVIDERS: PCP Family Medicine; Visit Provider Nurse Practitioner Family | DX: N39.0 Urinary tract infection, site not specified (principal) | CPT/HCPCS: 51798; 81003; 87086; 99203 ==

== ENCOUNTER 2022-05-29 16:06 | Outpatient (CLI) | payer MEDICARE, OTHER, SELFPAY ==
[2022-05-29 17:02] LABS: Add Urine Microscopic? YES; Bilirubin Urine Neg (Negative); Blood Urine 2+ (Negative); Glucose Urine UA Norm (Normal); Ketones Urine Negative (Negative); Leukocyte Esterase Urine 2+ (Negative); Nitrate Urine Negative (Negative); Protein Urine Neg (Negative); Urine Appearance Hazy (CLEAR); Urine Color Yellow (Yellow); Urobilinogen Urine Neg (Negative); pH Urine 6 (5-7)
[2022-05-29 17:04] LABS: WBC Urine 15-25 /hpf (0-5)
[2022-05-29 17:05] LABS: Add Urine Culture? No; Bacteria Urine TRACE /hpf; Squamous Epithelial Cell Urine 15-25 /hpf (0-5)
== END 2022-05-29 16:07 | disposition home or self-care (01) ==
PROVIDERS: PCP Family Medicine; Visit Provider Family Medicine
DX: Z87.440 Personal history of urinary (tract) infections (principal)
CPT/HCPCS: 81001

== ENCOUNTER → 2022-06-19 13:16 | Outpatient (BNVA) | payer MEDICARE, OTHER, SELFPAY | PROVIDERS: PCP Family Medicine; Visit Provider Urology | DX: N39.0 Urinary tract infection, site not specified (principal) | CPT/HCPCS: 52000; 81003; 99214 ==

== ENCOUNTER → 2022-08-14 13:45 | Outpatient (BNVA) | payer MEDICARE, OTHER, SELFPAY | PROVIDERS: PCP Family Medicine; Visit Provider Urology | DX: N30.20 Other chronic cystitis without hematuria (principal); R33.9 Retention of urine, unspecified; N95.2 Postmenopausal atrophic vaginitis | CPT/HCPCS: 99213 ==

== ENCOUNTER → 2022-11-04 10:37 | Outpatient (BNVA) | payer MEDICARE, OTHER, SELFPAY | PROVIDERS: PCP Family Medicine; Visit Provider Urology | DX: N30.20 Other chronic cystitis without hematuria (principal); N95.2 Postmenopausal atrophic vaginitis; R33.9 Retention of urine, unspecified | CPT/HCPCS: 99213 ==

== ENCOUNTER 2022-12-02 15:32 | Outpatient (CLI) | payer MEDICARE, OTHER, SELFPAY ==
[2022-12-02 15:57] LABS: Add Urine Microscopic? YES; Bilirubin Urine Neg (Negative); Blood Urine 3+ (Negative); Glucose Urine UA Norm (Normal); Ketones Urine Negative (Negative); Leukocyte Esterase Urine 2+ (Negative); Nitrate Urine Negative (Negative); Protein Urine 1+ (Negative); Specific Gravity, Urine 1.015 (1.005-1.030); Urine Appearance Cloudy (CLEAR); Urine Color Straw (Yellow); Urobilinogen Urine Norm (Negative); pH Urine 5 (5-7)
[2022-12-02 16:00] LABS: Bacteria Urine 2+ /hpf; WBC Urine TOO NUMEROUS TO CNT /hpf (0-5)
[2022-12-02 16:01] LABS: Add Urine Culture? Yes; Squamous Epithelial Cell Urine 0-4 /hpf (0-5)
== END 2022-12-02 15:33 | disposition home or self-care (01) ==
LOC: LAB 15:33
PROVIDERS: PCP Family Medicine; Visit Provider Family Medicine
DX: N81.10 Cystocele, unspecified (principal); R82.90 Unspecified abnormal findings in urine; Z87.440 Personal history of urinary (tract) infections
CPT/HCPCS: 81001; 87077; 87086; 87186

== ENCOUNTER 2023-05-15 17:14 | Outpatient (CLI) | payer MEDICARE, OTHER, SELFPAY ==
[2023-05-15 17:32] LABS: Bilirubin Urine Neg (Negative); Blood Urine 2+ (Negative); Glucose Urine UA Norm (Normal); Ketones Urine Negative (Negative); Nitrate Urine Negative (Negative); Protein Urine Neg (Negative); Urine Appearance Cloudy (CLEAR); Urine Color Yellow (Yellow); Urobilinogen Urine Norm (Negative); pH Urine 6 (5-7)
[2023-05-15 17:33] LABS: Add Urine Microscopic? YES; Leukocyte Esterase Urine 2+ (Negative)
[2023-05-15 18:13] LABS: RBC Urine 0-4 /hpf (0-2)
[2023-05-15 18:14] LABS: Add Urine Culture? No; Bacteria Urine TRACE /hpf; Mucus Urine TRACE /hpf
== END 2023-05-15 17:15 | disposition home or self-care (01) ==
LOC: LAB 17:19
PROVIDERS: PCP Family Medicine; Visit Provider Family Medicine
DX: Z87.440 Personal history of urinary (tract) infections (principal); N81.10 Cystocele, unspecified
CPT/HCPCS: 81001

== ENCOUNTER 2023-12-23 15:27 | Outpatient (CLI) | payer MEDICARE, OTHER, SELFPAY ==
[2023-12-23 15:36] LABS: Charge for UA Resulting for Rev
[2023-12-23 15:40] LABS: Bilirubin Urine Negative (Negative); Blood Urine 1+ (Negative); Glucose Urine UA Negative (Normal); Ketones Urine Negative (Negative); Leukocyte Esterase Urine 3+ (Negative); Nitrate Urine Negative (Negative); Protein Urine 1+ (Negative); Specific Gravity, Urine 1.015 (1.005-1.030); Urine Appearance Cloudy (CLEAR); Urine Color Yellow (Yellow); Urobilinogen Urine 0.2 mg/dL (Negative)
[2023-12-23 15:45] LABS: Bacteria Urine Trace /hpf; WBC Urine >100 /hpf (0-5)
[2023-12-23 15:49] LABS: Add Urine Culture? No
== END 2023-12-23 15:28 | disposition home or self-care (01) ==
LOC: LAB 15:29
PROVIDERS: PCP Family Medicine; Visit Provider Family Medicine
DX: R31.9 Hematuria, unspecified (principal)
CPT/HCPCS: 81003; 81015; 87086; 87186

== ENCOUNTER → 2024-10-21 12:50 | Outpatient (BNVA) | payer MEDICARE, OTHER, SELFPAY | PROVIDERS: PCP Family Medicine; Visit Provider Thoracic Surgery (Cardiothoracic Vascular Surgery) | DX: I96 Gangrene, not elsewhere classified (principal); L89.153 Pressure ulcer of sacral region, stage 3 | CPT/HCPCS: 11042; 99203 ==

== ENCOUNTER → 2024-10-29 11:02 | Outpatient (BNVA) | payer MEDICARE, OTHER, SELFPAY | PROVIDERS: PCP Family Medicine; Visit Provider Thoracic Surgery (Cardiothoracic Vascular Surgery) | DX: I96 Gangrene, not elsewhere classified (principal); L89.153 Pressure ulcer of sacral region, stage 3 | CPT/HCPCS: 11042; A6212 ==

== ENCOUNTER → 2024-11-10 13:18 | Outpatient (BNVA) | payer MEDICARE, OTHER, SELFPAY | PROVIDERS: PCP Family Medicine; Visit Provider Thoracic Surgery (Cardiothoracic Vascular Surgery) | DX: I96 Gangrene, not elsewhere classified (principal); L89.153 Pressure ulcer of sacral region, stage 3 | CPT/HCPCS: 97597 ==

== ENCOUNTER → 2024-11-17 14:00 | Outpatient (BNVA) | payer MEDICARE, OTHER, SELFPAY | PROVIDERS: PCP Family Medicine; Visit Provider Thoracic Surgery (Cardiothoracic Vascular Surgery) | DX: I96 Gangrene, not elsewhere classified (principal); L89.153 Pressure ulcer of sacral region, stage 3 | CPT/HCPCS: 97597; A6021; A6212 ==

== ENCOUNTER → 2024-11-24 13:32 | Outpatient (BNVA) | payer MEDICARE, OTHER, SELFPAY | PROVIDERS: PCP Family Medicine; Visit Provider Thoracic Surgery (Cardiothoracic Vascular Surgery) | DX: I96 Gangrene, not elsewhere classified (principal); L89.153 Pressure ulcer of sacral region, stage 3 | CPT/HCPCS: 97597; A6021 ==

== ENCOUNTER → 2024-12-08 13:34 | Outpatient (BNVA) | payer MEDICARE, OTHER, SELFPAY | PROVIDERS: PCP Family Medicine; Visit Provider Thoracic Surgery (Cardiothoracic Vascular Surgery) | DX: I96 Gangrene, not elsewhere classified (principal); L89.153 Pressure ulcer of sacral region, stage 3 | CPT/HCPCS: 97597; A6021; A6212 ==

== ENCOUNTER → 2024-12-22 11:11 | Outpatient (BNVA) | payer MEDICARE, OTHER, MEDICAID, SELFPAY | PROVIDERS: PCP Family Medicine; Visit Provider Thoracic Surgery (Cardiothoracic Vascular Surgery) | DX: I96 Gangrene, not elsewhere classified (principal); L89.153 Pressure ulcer of sacral region, stage 3 | CPT/HCPCS: 97597; A6021 ==